=== PATIENT | male | born 1940 | race Caucasian/White ===

== ENCOUNTER 2017-02-06 08:08 | Emergency (ER) | payer MEDICARE ==
[~2017-02-06] VITALS: Ht 182.9 cm; Wt 100.0 kg
[2017-02-06 08:13] VITALS: BP 124/84; PULSE 78; RESP 17; TEMP 98.1; O2SAT 98
--- NOTE | 2017-02-06 08:44 | PD ---
HPI Chief Complaint: Injury Time Seen by Provider: 08:34 Travel History International Travel<30 days: No Contact w/Intl Traveler<30days: No Traveled to known affect area: No History of Present Illness HPI 76-year-old female with history of A. fib currently on blood thinners, presents to the ER today because he states that this morning he went to moss picker the cat to carry him to the bathroom and his left wrist gave out on him. He states that he is having significant wrist pain, which she states is a 10 out of 10, worse with any movement. He splinted on his own. He denies any other issues or injuries. He denies any fall or injury to the wrist currently. Modifying Factors: None Associated Signs & Symptoms: Left wrist pain, injury Risk Factors: None PFSH Past Medical History Hx Anticoagulant Therapy: Yes (PRADAXA) Arthritis: Yes Atrial Fibrillation: Yes Cardiovascular Problems: Yes (A-FIB) Cerebrovascular Accident: Yes (CVA) Hypertension: Yes Ulcer: Yes Tetanus Vaccination: Unknown Influenza Vaccination: Yes Past Surgical History Abdominal Surgery: Yes (hernia repair) Social History Alcohol Use: Yes (Wine 1-2x/week) Tobacco Use: No Substance Use: No Allergies-Medications (Allergen,Severity, Reaction): Coded Allergies: Aspirin (Verified Allergy, Unknown, 02/06/17) Reported Meds & Prescriptions Reported Meds & Active Scripts Active Reported Lorazepam 0.5 Mg Tab 0.5 Mg PO Q6H PRN Ranitidine (Ranitidine HCl) 150 Mg Cap 150 Mg PO DAILY Lisinopril-Hctz 10-12.5 Mg Tab 1 Tab PO DAILY Atorvastatin (Atorvastatin Calcium) 20 Mg Tab 20 Mg PO HS Metoprolol Succinate ER 24 HR (Metoprolol Succinate) 50 Mg Tab 50 Mg PO DAILY Pradaxa (Dabigatran) 150 Mg Cap 150 Mg PO BID Acyclovir 200 Mg Cap 200 Mg PO 5 TIMES A DAY Review of Systems Except as stated in HPI: all other systems reviewed are Neg Physical Exam Narrative GENERAL: Well-nourished, well-developed elderly white male patient in no acute distress. Awake and oriented 3. SKIN: Focused skin assessment warm/dry. HEAD: Normocephalic. EYES: No scleral icterus. No injection or drainage. NECK: Supple, trachea midline. CARDIOVASCULAR: Regular rate and rhythm without murmurs, gallops, or rubs. RESPIRATORY: Breath sounds equal bilaterally. No accessory muscle use. GASTROINTESTINAL: Abdomen soft, non-tender, nondistended. MUSCULOSKELETAL: No cyanosis, or edema. BACK: Nontender without obvious deformity. No CVA tenderness. Left arm: There is tenderness to palpation of the left wrist, neurovascularly intact below the injury. Data Data Last Documented VS Vital Signs Date Time Temp Pulse Resp B/P Pulse Ox O2 Delivery O2 Flow Rate FiO2 02/06/17 08:13 98.1 78 17 124/84 98 Orders Hand, Complete ([id number]) (02/06/17 08:35) Wrist, Complete ([id number]) (02/06/17 08:35) Hydromorphone Pf Inj (Dilaudid Pf Inj) (02/06/17 08:45) Ondansetron Inj (Zofran Inj) (02/06/17 08:45) MDM Medical Decision Making Medical Screen Exam Complete: Yes Emergency Medical Condition: Yes Medical Record Reviewed: Yes Differential Diagnosis Left wrist injurydislocation versus fractures versus strain Narrative Course Pulses are present and equal bilaterally. He is neurovascularly intact. X- rays did not show any signs of acute fractures or dislocations other there is notable osteoarthritis in this joint. Occult fractures cannot be ruled out. At this point, my plan would be to put the left wrist in a splint and have him follow-up with orthopedics. Return for any worsening in pain or new symptoms as needed. The plan has discussed discussed with him and he states understanding. Diagnosis Primary Impression: Left wrist injury Additional Instructions: Follow-up with an orthopedics doctor regarding this issue. Return for any worsening in pain, swelling, or new symptoms as needed. Med/Other Pt SpecificInfo: Prescription(s) given Scripts Hydrocodone-Acetaminophen (Lortab)5-325 Mg Tab1 Tab PO Q6H PRN (PAIN) #15 TAB Ref 0 Prov:Giselle Springer MD 02/06/17 Disposition: 01 DISCHARGE HOME Condition: Stable Giselle Springer MD Feb 06, 2017 08:44
[2017-02-06] MEDS ORDERED: ONDANSETRON HCL 4 MG/2 ML VIAL IV PUSH ONE ×2 (08:45→10:45)
[2017-02-06] MEDS ORDERED: HYDROmorphone HCL PF 1 MG/ML VIAL IV PUSH ONE (08:45)
[2017-02-06] MEDS ORDERED: RANI150C PO (09:00)
[2017-02-06] MEDS ORDERED: PRAD150C PO (09:00)
[2017-02-06] MEDS ORDERED: LORA-373 PO (09:00)
[2017-02-06] MEDS ORDERED: ACYC200C66 PO (09:00)
[2017-02-06] MEDS ORDERED: LISI10TA PO (09:00)
[2017-02-06] MEDS ORDERED: METO50TA11 PO (09:00)
[2017-02-06] MEDS ORDERED: ATOR20TA15 PO (09:00)
--- NOTE | 2017-02-06 09:58 | RADRPT ---
EXAM DATE/TIME: 02/06/2017 09:25 [facility] COMPARISON: No previous studies available for comparison. INDICATIONS : Left hand pain, injured while playing with cat. MEDICAL HISTORY : SURGICAL HISTORY : None. ENCOUNTER: Initial ACUITY: 2 days PAIN SCORE: 10/10 LOCATION: Left lateral hand FINDINGS: No definite fractures, or dislocations are identified. No definite lytic or sclerotic lesion is seen . Moderate to severe degenerative arthritis is present within multiple interphalangeal joints and fir st carpometacarpal joint. CONCLUSION: Osteoarthritis. KGareth Andersen MD on February 06, 2017 at 9:55 Board Certified Radiologist. This report was verified electronically.
--- NOTE | 2017-02-06 09:59 | RADRPT ---
EXAM DATE/TIME: 02/06/2017 09:29 [facility] COMPARISON: No previous studies available for comparison. INDICATIONS : Left wrist pain, injured while playing with cat. MEDICAL HISTORY : None. SURGICAL HISTORY : None. ENCOUNTER: Initial ACUITY: 2 days PAIN SCORE: 10/10 LOCATION: Left lateral wrist FINDINGS: No definite fractures, or dislocations are identified. No definite lytic or sclerotic lesion is seen . Moderate to severe osteoarthritis is present in the first carpometacarpal joint and distal radial u lnar joint, lesser degree involving some of the other carpal joints. Chronic atherosclerotic calcific ations are seen involving the visualized arteries. CONCLUSION: Chronic changes and no evidence for acute fracture. Mazin Andersen MD on February 06, 2017 at 9:56 Board Certified Radiologist. This report was verified electronically.
[2017-02-06] MEDS ORDERED: HYDR-3533 PO (10:06)
[2017-02-06 10:50] VITALS: BP 138/73; PULSE 60; RESP 18; O2SAT 97
== END 2017-02-06 11:04 | disposition home or self-care (01) ==
LOC: NEPE 08:08
DX: S69.92XA Unspecified injury of left wrist, hand and finger(s), initial encounter (principal); X58.XXXA Exposure to other specified factors, initial encounter; Y93.89 Activity, other specified
CPT/HCPCS: 29125; 73110; 73130; 96374; 96375; 96376; 99283; J1170; J2405